=== PATIENT | female | born 1985 | race Caucasian/White ===

== ENCOUNTER 2017-12-25 14:11 | Day surgery (SDC) | payer OTHER ==
[~2017-12-25] VITALS: Ht 177.8 cm; Wt 94.3 kg
[~2017-12-25 14:11] MED LIST: ACEASPCAF PO; ACEBUTCAFT PO; AMOCLA875 PO; BCP; BCP'S; CRUTCH2 USE; HYDACE5 PO; HYDACE5325 PO; LORA1 PO; META800 PO; MULVITMINE PO; NAPR500 PO; NARA2.5 PO; RXHYD5325 PO; RXHYDACE PO; RXONDA4ODT MM; TRAM50 PO; TYLENOL; VERA80 PO; Verotin-Gr Cap1 EACH
[2017-12-25] MEDS ORDERED: Camila0.35 MG PO (15:33)
[2017-12-25] MEDS ORDERED: MONT10T PO (15:34)
== END 2017-12-25 18:40 | disposition home or self-care (01) ==
LOC: ORSCSDS 14:11
PROVIDERS: Internal Medicine Gastroenterology
PROC: 0DBE8ZX Excision of Large Intestine, Via Natural or Artificial Opening Endoscopic, Diagnostic (ICD-10-PCS; principal; 2017-12-25 15:15)
DX: K92.1 Melena (principal); K64.8 Other hemorrhoids; J45.909 Unspecified asthma, uncomplicated; Z87.891 Personal history of nicotine dependence
CPT/HCPCS: 88305; J2250; J7120

== ENCOUNTER → 2018-02-15 | Outpatient (CLI) | payer OTHER ==
[~2018-02-15] MED LIST changes: +Camila0.35 MG PO; +MONT10T PO
[2018-02-18 13:19] LABS: HPV Genotype 16 Not Detected (NOTDET); HPV Genotype 18 Not Detected (NOTDET)
[2018-02-25 17:34] LABS: HPV High Risk Other Not Detected (NOTDET)
== END | disposition home or self-care (01) ==
LOC: LAB SHORT 11:07 → LAB 11:07
PROVIDERS: Obstetrics & Gynecology
DX: Z01.419 Encounter for gynecological examination (general) (routine) without abnormal findings (principal)
CPT/HCPCS: 87624; G0123

== ENCOUNTER → 2018-04-25 | Outpatient (CLI) | payer OTHER | END | disposition home or self-care (01) | LOC: PLD 15:03 → LAB SHORT 15:03 | DX: R87.619 Unspecified abnormal cytological findings in specimens from cervix uteri (principal) | CPT/HCPCS: 88305 ==

== ENCOUNTER → 2019-03-19 | Outpatient (CLI) | payer OTHER ==
[2019-03-20 15:06] LABS: HPV 16 Negative (Negative); HPV 18 Negative (Negative); HPV OTHER HR TYPES Negative (Negative)
== END | disposition home or self-care (01) ==
LOC: LAB SHORT 09:01 → LAB 09:01
PROVIDERS: Obstetrics & Gynecology
DX: Z01.419 Encounter for gynecological examination (general) (routine) without abnormal findings (principal)
CPT/HCPCS: 87624; G0123

== ENCOUNTER → 2022-09-28 | Outpatient (CLI) | payer OTHER ==
[2022-10-02 16:08] LABS: HPV 16 Negative (Negative); HPV 18 Negative (Negative); HPV OTHER HR TYPES Negative (Negative)
== END | disposition home or self-care (01) ==
LOC: LAB 16:45 → LAB SHORT 16:45
PROVIDERS: Obstetrics & Gynecology
DX: Z01.419 Encounter for gynecological examination (general) (routine) without abnormal findings (principal)
CPT/HCPCS: 87624; G0123

== ENCOUNTER → 2024-01-05 | Outpatient (CLI) | payer OTHER | LOC: LAB 16:03 → LAB SHORT 16:03 | DX: N39.0 Urinary tract infection, site not specified (principal) | CPT/HCPCS: 87077; 87086; 87186 ==